=== PATIENT | male | born 1995 | race Caucasian/White ===

== ENCOUNTER 2019-05-19 22:44 | Emergency (ER) | payer OTHER ==
[~2019-05-19] VITALS: Ht 180.3 cm; Wt 127.0 kg
[2019-05-19 22:46] VITALS: BP 167/89
[2019-05-19] MEDS ORDERED: AMOX-422 PO (23:46)
[2019-05-19] MEDS ORDERED: bacitracin 15gm ointment TP ONE (23:50)
== END 2019-05-20 00:13 | disposition home or self-care (01) ==
LOC: ER 22:45
DX: S02.842A Fracture of lateral orbital wall, left side, initial encounter for closed fracture (principal); S01.112A Laceration without foreign body of left eyelid and periocular area, initial encounter; Z79.2 Long term (current) use of antibiotics; V98.8XXA Other specified transport accidents, initial encounter; Y93.89 Activity, other specified; Y92.89 Other specified places as the place of occurrence of the external cause; Y99.8 Other external cause status
CPT/HCPCS: 70450; 72125; 99284